=== PATIENT | female | born 1980 | race Caucasian/White ===

== ENCOUNTER → 2025-01-14 15:05 | Outpatient (REF) | payer BC, SELFPAY | LOC: CLAB 15:05 | PROVIDERS: ATTENDING PHYSICIAN Obstetrics & Gynecology Gynecology | DX: N87.9 Dysplasia of cervix uteri, unspecified (principal) | CPT/HCPCS: 88305; 88307 ==

== ENCOUNTER → 2025-04-04 10:59 | Outpatient (REF) | payer BC, SELFPAY | LOC: PAVMRI 10:59 | PROVIDERS: ATTENDING PHYSICIAN Obstetrics & Gynecology Gynecology; FAMILY PHYSICIAN Internal Medicine | DX: D06.9 Carcinoma in situ of cervix, unspecified (principal) | CPT/HCPCS: 72197; A9575 ==